=== PATIENT | female | born 2000 | race African-American/Black ===

== ENCOUNTER 2022-03-22 06:22 | Emergency (ER) | payer OTHER, SELFPAY ==
--- NOTE | ~2022-03-22 | XR_ITS ---
EXAMINATION: XR foot LT min 3V DATE: 03/22/2022 06:55 INDICATION: Left foot pain post injury TECHNIQUE: Dorsoplantar, two oblique and lateral views of the left foot were obtained. COMPARISON: None. FINDINGS: Bone alignment is normal. No fracture. Joint spaces are normal. There is a 4 x 2 mm intracortical lyt ic lesion measuring 4 x 2 mm which is aligned along the axis of the bone at the medial proximal metad iaphyseal region of the of the third metacarpal with narrow zone of transition and without periosteal reaction. Soft tissues are unremarkable.. IMPRESSION: 1. No acute osseous abnormality. 2. Tiny nonaggressive appearing lytic lesion along the proximal metadiaphysis of the third metatarsal with differential including vascular channel, nonossifying fibroma, fibrous dysplasia or eosinophili c granuloma. Reviewed, dictated and finalized at location A. [facility] IMPRESSION: 1. No acute osseous abnormality. 2. Tiny nonaggressive appearing lytic lesion along the proximal metadiaphysis o f the third metatarsal with differential including vascular channel, nonossifyi ng fibroma, fibrous dysplasia or eosinophilic granuloma.
[2022-03-22 06:26] VITALS: BP 118/55; PULSE 92; RESP 18; TEMP 36.2; O2SAT 98
--- NOTE | 2022-03-22 07:12 | ED.LOWEXIN ---
HPI - Extremity Injury (Lower) General Chief Complaint: Extremity Injury, Lower Stated Complaint: Left foot pain/injury Time Seen by Provider: 03/22/22 07:03 History of Present Illness HPI Narrative: Pt was lowering bed at college and piece of wood fell on her left foot and spring struck her left leg. Pt complains of pain to her left foot worse with ambulation. Pt denies other injury. Related Data Allergies Allergy/AdvReac Type Severity Reaction Status Date / Time No Known Allergies Allergy Verified 03/22/22 06:33 Review of Systems Review of Systems: All systems reviewed & are unremarkable except as noted in HPI and below Exam Const: General: healthy appearing and no acute distress Nutritional Appearance: well nourished Orientation/consciousness: patient oriented x3 Limitations: no limitations Skin: General skin exam: normal color Wounds: no wounds Neuro: General: patient oriented x3, moves all extremities and no focal motor deficits Speech: normal speech Extrem: General: normal to inspection and no clubbing, cyanosis or edema Other: mild tenderness top of left foot minimal swelling/bruising Psych: Mental Status: mental status grossly normal Affect: normal affect Attitude: cooperative Course Vital Signs Vital signs: Vital Signs Temperature 97.2 F L 03/22/22 06:26 Pulse Rate 92 03/22/22 06:26 Respiratory Rate 18 03/22/22 06:26 Blood Pressure 118/55 L 03/22/22 06:26 Pulse Oximetry 98 03/22/22 06:26 Oxygen Delivery Room Air 03/22/22 06:26 Temperature 97.2 F L 03/22/22 06:26 Pulse Rate 65 03/22/22 08:55 Respiratory Rate 18 03/22/22 08:55 Blood Pressure 118/69 03/22/22 08:55 Pulse Oximetry 100 03/22/22 08:55 Oxygen Delivery Room Air 03/22/22 06:26 MDM - Extremity Injury (Lower) MDM Narrative Medical decision making narrative: given mechanism likely fx vs contusion will get x ray ta assess, leg seems fine wo no x ray needed there. Imaging Data My impression: no fx non aggressive lesion 3rd mt seen, no tenderness over this spot agree with radiologist Discharge Plan Discharge Clinical Impression: Contusion of foot, left Patient Disposition: Home, Self-Care Condition: Stable Instructions: Antibiotic Form, Contusion in Adults (ED) Prescriptions: New naproxen [Naprosyn] 500 mg tablet 500 mg PO BID Qty: 20 0RF Follow-up/Referrals: Yoko,OSVALDO Disla [Primary Care Provider] - Stand Alone Forms: Work/School Release IP
[2022-03-22 08:55] VITALS: BP 118/69; PULSE 65; RESP 18; O2SAT 100
== END 2022-03-22 08:57 | disposition home or self-care (01) ==
PROVIDERS: Emergency Provider Emergency Medicine; PCP Physician Assistant
DX: S90.32XA Contusion of left foot, initial encounter (principal); W20.8XXA Other cause of strike by thrown, projected or falling object, initial encounter
CPT/HCPCS: 73630; 99283

== ENCOUNTER 2022-05-30 19:26 | Emergency (ER) | payer OTHER, SELFPAY ==
--- NOTE | ~2022-05-30 | CT_ITS ---
EXAMINATION: CT cervical spine wo con DATE: 05/30/2022 21:26 INDICATION: Fall. Seizure. Posterior neck pain. TECHNIQUE: Computed tomography (CT) of the cervical spine was performed without intravenous contrast. Automated exposure control and iterative reconstruction technique were employed. Exam dose: 165.20 mGy-cm total exam DLP. COMPARISON: None FINDINGS: There is straightening of the cervical spine which may be due to muscle spasm. C1 and C2 are normally aligned and the odontoid process is intact. No fracture or dislocation or lock ed facet or prevertebral soft tissue swelling. Cervical interspaces are well preserved.. IMPRESSION: Straightening of the cervical spine; otherwise negative Reviewed, dictated and finalized at Location [facility]. Reviewed, dictated and finalized at location A.
--- NOTE | ~2022-05-30 | XR_ITS ---
XR chest 2V DATE: 05/30/2022 21:43 INDICATION: Seizure. History of asthma. TECHNIQUE: AP and lateral views COMPARISON: None FINDINGS: Normal heart size. No hilar or mediastinal enlargement. No pulmonary infiltrate or consolid ation, pleural effusion or pulmonary vascular congestion or pneumothorax. Minimal levoscoliosis of th e thoracic spine. Included skeletal structures are otherwise unremarkable. IMPRESSION: No active cardiopulmonary disease Reviewed, dictated and finalized at location A.
--- NOTE | ~2022-05-30 | CT_ITS ---
EXAMINATION: CT brain wo con DATE: 05/30/2022 21:25 INDICATION: Head injury, seizure. Right frontal headache. Dizziness. TECHNIQUE: Computed tomography (CT) of the head was performed without intravenous contrast. The mA wa s adjusted according to patient size. Iterative reconstruction technique was employed. Exam dose: 52 9.67 mGy-cm total exam DLP. COMPARISON: None FINDINGS: Focal right frontal asymmetric diminished attenuation consistent with focal encephalomalaci a. History of cerebrovascular accident. There is a metallic device of the right frontal bone. Recomme nd correlation with clinical and surgical history.. Otherwise no intracranial mass lesion or hemorrhage, midline shift or mass effect is noted. Normal diggs-white matter differentiation. Normal ventricular size. There are several calcifications subjacent to the inner cortex of the skeleton the right mid and uppe r parietal area. No subdural or epidural hematoma. Prominent calcifications along the anterior falx. There are occasional lower right mastoid air cells with effusions. The mastoid air cells and included paranasal sinuses are otherwise unremarkable. No fracture or bone destruction of the cranial vault. IMPRESSION: Focal right frontal encephalomalacia; history of cerebrovascular accident Postoperative change of the right frontal bone No acute intracranial finding is identified Reviewed, dictated and finalized at [facility]. Reviewed, dictated and finalized at location A. IMPRESSION: Focal right frontal encephalomalacia; history of cerebrovascular a ccident Postoperative change of the right frontal bone No acute intracranial finding is identified
[2022-05-30 19:28] VITALS: BP 112/77; PULSE 84; RESP 16; TEMP 37.2; O2SAT 100
[2022-05-30 19:34] VITALS: O2SAT 100
[2022-05-30 20:00] VITALS: O2SAT 99
--- NOTE | 2022-05-30 20:58 | ED.SEIZURE ---
HPI - Seizure General Chief Complaint: Seizure Stated Complaint: SYNCOPAL EPISODE VS SZ Time Seen by Provider: 05/30/22 20:16 History of Present Illness HPI Narrative: This is a 22-year-old female with past medical history of stroke with residual left-sided weakness and numbness, and seizures, who presents to the emergency department after a suspected seizure. The patient states she was at home, when she felt symptoms consistent with her preseizure aura and lost consciousness. She states she is compliant with her medications and was recently started on trazodone for sleep. She denies any recent illnesses. Seizure History: Yes Related Data Allergies Allergy/AdvReac Type Severity Reaction Status Date / Time No Known Allergies Allergy Verified 05/30/22 20:05 Review of Systems Review of Systems: CONSTITUTIONAL: Denies fever, chills, or sweats. CARDIOVASCULAR: Chest wall pain Denies palpitations, or edema. RESPIRATORY: Denies cough or dyspnea. GASTROINTESTINAL: Denies abdominal pain, nausea, vomiting, or diarrhea. GENITOURINARY: Denies dysuria or hematuria. SKIN: Denies rash or itching. MUSCULOSKELETAL: Neck pain Denies back pain, joint pain, or myalgia. NEUROLOGIC: Denies headache, numbness, dizziness, or weakness. PSYCHIATRIC: Denies anxiety or depression. [facility] Past Medical History Medical History (Updated 05/31/22 @ 00:14 by [facility] Daemanshul) Seizure Stroke Social History Social History (Updated 05/30/22 @ 21:07 by Giuseppe Severino MD) Smoking status: Never smoker Alcohol intake: never Substance use: never Exam Narrative: GENERAL: Well-developed, well-nourished, and in no acute distress. HEAD: Normocephalic, atraumatic. EYES: PERRLA and EOMI. ENT: Nares clear, no rhinorrhea or epistaxis. Mucous membranes moist. Oropharynx without tonsillar hypertrophy exudate or other lesions. NECK: Supple. No adenopathy or masses. No carotid bruits or JVD. Mild tenderness to palpation at approximately C4 without step-off or crepitus. Range of motion of the neck intact without pain. CHEST: Clear to auscultation. No respiratory distress. No wheezes rales or rhonchi. Mild tenderness to palpation of the anterior chest wall. HEART: Regular rate and rhythm. No murmur heard. Normal peripheral pulses. ABDOMEN: Soft, nontender, nondistended, normal active bowel sounds. EXTREMITIES: Normal range of motion. No edema. SKIN: Warm, dry, no rash. NEURO: No focal deficits. Alert and oriented x3. Strength 5/5 in all extremities, mild decrease sensation on the left compared to the right in the upper and lower extremities, cranial nerves II through XII intact. No noted ataxia. PSYCH: Normal mood and affect. Course Course Emergency Course: 20:55 - I suspect the patient's seizure may be related to use of trazodone. 21:35 - UA consistent with UTI. Urine drug screening positive for cannabinoids. On my review of the patient's CT head there is no intracranial hemorrhage, mass or obvious fracture. CT C-spine negative for fracture or dislocation on my review. Chest x-ray on my review is not concerning for acute cardiopulmonary process. 22:00 - Radiology interpretations for CT head, CT cervical spine and chest x-ray unremarkable. Discussed findings with the patient including recommendations to stop taking trazodone. Will treat the patient for urinary tract infection with recommendation for primary care follow-up. Discussed return emergent precautions including signs/symptoms of new focal deficit, status epilepticus and respiratory distress. The patient voiced understanding and is comfortable with the plan. All questions answered to her satisfaction Vital Signs Vital signs: Vital Signs Temperature 98.9 F 05/30/22 19:28 Pulse Rate 84 05/30/22 19:28 Respiratory Rate 16 05/30/22 19:28 Blood Pressure 112/77 05/30/22 19:28 Pulse Oximetry 100 05/30/22 19:28 Oxygen Delivery Room Air 05/30/22 19:28 Temperature 9
[2022-05-30 21:11] LABS: Basophils Absolute Auto 0.1 K/mm3 (0.0-0.1); Basophils Percent Auto 0.7 % (0.2-1.2); Eosinophils Absolute Auto 0.2 K/mm3 (0-0.3); Eosinophils Percent Auto 1.6 % (0-4.4); Hematocrit 43.3 % (37.0-47.0); Hemoglobin 14.5 g/dL (12.0-15.0); Immature Granulocyte Absolute 0.04 K/mm3 (0.00-0.031); Immature Granulocyte Percent A 0.4 % (0-0.5); Lymphocytes Absolute Auto 2.51 K/mm3 (0.9-3.2); Lymphocytes Percent Auto 23.2 % (18.3-44.2); Mean Corpuscular HGB Conc 33.5 g/dl (32-36); Mean Corpuscular Hemoglobin 32.4 pg (26-34); Mean Corpuscular Volume 96.9 fl (80-100); Mean Platelet Volume 9.6 fl (7.4-10.4); Monocytes Percent Auto 9.1 % (2.6-8.5); Neutrophils Absolute Auto 7.1 K/mm3 (1.3-6.7); Platelet Count Result 361 k/mm3 (150-375); Red Blood Count 4.47 M/mm3 (4.2-5.4); White Blood Count 10.8 K/mm3 (4.5-10.0)
[2022-05-30 21:21] LABS: Appearance Urine Turbid (Clear); Bacteria Urine 4+ /hpf; Bilirubin Urine Negative (Negative); Blood Urine 3+ (Negative); Color Urine Yellow (Yellow); Glucose Urine UA Negative (Negative); Ketones Urine Trace mg/dL (Negative); Leukocyte Esterase Ur 2+ LEU/UL (Negative); Mucus Urine Present /lpf; Need Manual Microscopic Reviewed; Nitrate Urine Negative (Negative); Non Pathogenic Casts 0-2; Protein Urine 1+ mg/dL (Negative); RBC Urine >100 /hpf (0-2); Squamous Epithelial Cell Urine Many /hpf (Few); WBC Urine >100 /hpf
[2022-05-30 21:23] LABS: Add Urine Microscopic? YES; Alanine Aminotransferase 26 U/L (6-35); Albumin Level 5.1 g/dL (3.5-5.1); Alkaline Phosphatase 79 U/L (38-126); Anion Gap 8 mmol/L (8-16); Aspartate Amino Transferase 28 U/L (14-36); Bilirubin,Total 1.1 mg/dL (0.2-1.3); Blood Urea Nitrogen 12 mg/dL (7-17); Calcium 9.2 mg/dL (8.4-10.2); Carbon Dioxide 27 mmol/L (22-30); Chloride 105 mmol/L (98-107); Estimated CRCL calculation 95 ml/min; Estimated Glomerular Filt Rate > 60; Glucose 81 mg/dL (65-110); Magnesium 2.2 mg/dL (1.6-2.3); Potassium 3.7 mmol/L (3.4-5.0); Sodium 140 mmol/L (137-145)
[2022-05-30 21:27] LABS: Amphetamine Screen Urine Negative (Negative); Barbiturate Screen Urine Negative (Negative); Benzodiazepines Screen Urine Negative (Negative); Cannabinoid Screen Urine Positive (Negative); Cocaine Screen Urine Negative (Negative); Methadone Screen Urine Negative (Negative); Opiate Screen Urine Negative (Negative); Phencyclidine Screen Urine Negative (Negative)
[2022-05-30] MEDS: levETIRAcetam 500 MG TABLET PO (21:32)
[2022-05-30] MEDS: CEPHALEXIN 500 MG CAPSULE PO (22:24)
[2022-05-30 22:26] VITALS: BP 118/81; PULSE 92; RESP 18; O2SAT 99
== END 2022-05-30 22:27 | disposition home or self-care (01) ==
PROVIDERS: Emergency Provider Preventive Medicine Aerospace Medicine; PCP Physician Assistant
DX: G40.909 Epilepsy, unspecified, not intractable, without status epilepticus (principal); N39.0 Urinary tract infection, site not specified; I69.354 Hemiplegia and hemiparesis following cerebral infarction affecting left non-dominant side
CPT/HCPCS: 36415; 70450; 71046; 72125; 80053; 80307; 81001; 81025; 83735; 85025; 87086; 87088; 99284; A9270

== ENCOUNTER 2022-06-16 08:32 | Emergency (ER) | payer OTHER, SELFPAY ==
[2022-06-16] VITALS (9 sets, daily range): BP systolic 105–131; BP diastolic 64–93; PULSE 69–96; RESP 10–17; TEMP 36.6; O2SAT 98–100
--- NOTE | ~2022-06-16 | XR_ITS ---
EXAMINATION: XR chest 2V 06/16/2022 09:17 INDICATION: Stroke symptoms. PROCEDURE: 2 view chest COMPARISON: 05/30/2022 FINDINGS: The lungs are clear. The cardiomediastinal silhouette is within normal limits. There are no pleural effusions. There is no pneumothorax suspected. IMPRESSION: 1: NO ACUTE CARDIOPULMONARY DISEASE. Reviewed, dictated and finalized at location B.
--- NOTE | ~2022-06-16 | CT_ITS ---
EXAMINATION: CT brain wo con DATE: 06/16/2022 09:14 INDICATION: Left arm weakness. TECHNIQUE: Computed tomography (CT) of the head was performed without intravenous contrast. The mA wa s adjusted according to patient size. Iterative reconstruction technique was employed. The dose-lengt h product was 529.67 mGy-cm. COMPARISON: Head CT 05/30/2022 FINDINGS: There is an old johana hole in the right frontal bone. There is a tract of chronic encephalom alacia in the right frontal lobe. There is a low-attenuation in the deep white matter of the right fr ontal and parietal lobes. There is no intracranial hemorrhage, acute infarction, or abnormal intracra nial mass lesion. The ventricles are normal in size. The orbits are normal. The paranasal sinuses are clear. There is a right otomastoid effusion. IMPRESSION: 1. Stable white matter disease involving the right frontal lobe and right parietal lobe. The differen tial diagnosis includes subacute or chronic infarct, demyelinating disease such as multiple sclerosis , drug abuse, vasculitis, or reactive astrocytosis (gliosis) secondary to nonspecific etiology. Reviewed, dictated and finalized at location A. IMPRESSION: 1. Stable white matter disease involving the right frontal lobe and right parie mohit lobe. The differential diagnosis includes subacute or chronic infarct, demy elinating disease such as multiple sclerosis, drug abuse, vasculitis, or reacti ve astrocytosis (gliosis) secondary to nonspecific etiology.
--- NOTE | 2022-06-16 08:38 | ECG_ITS ---
Measurements Intervals [place] Rate: 78 P: 40 RI: 129 QRS: 67 QRSD: 86 T: 41 QT: 350 QTc: 399 Interpretive Statements SINUS RHYTHM NO PREVIOUS ECG AVAILABLE FOR COMPARISON Electronically Signed On 06-16-2022 18:06:44 CDT by Rony Harvey M.D.
[2022-06-16 09:08] LABS: Basophils Absolute Auto 0.1 K/mm3 (0.0-0.1); Basophils Percent Auto 0.6 % (0.2-1.2); Eosinophils Absolute Auto 0.3 K/mm3 (0-0.3); Hematocrit 42.8 % (37.0-47.0); Hemoglobin 14.3 g/dL (12.0-15.0); Immature Granulocyte Absolute 0.02 K/mm3 (0.00-0.031); Immature Granulocyte Percent A 0.2 % (0-0.5); Lymphocytes Absolute Auto 1.81 K/mm3 (0.9-3.2); Lymphocytes Percent Auto 21.9 % (18.3-44.2); Mean Corpuscular HGB Conc 33.4 g/dl (32-36); Mean Corpuscular Hemoglobin 32.6 pg (26-34); Mean Corpuscular Volume 97.5 fl (80-100); Mean Platelet Volume 9.8 fl (7.4-10.4); Monocytes Percent Auto 12.2 % (2.6-8.5); Neutrophils Absolute Auto 5.1 K/mm3 (1.3-6.7); Neutrophils Percent Auto 62.1 % (45.5-73.1); Platelet Count Result 267 k/mm3 (150-375); Red Blood Count 4.39 M/mm3 (4.2-5.4); Red Cell Distribution Width 12.1 % (11.5-14.5); White Blood Count 8.3 K/mm3 (4.5-10.0)
[2022-06-16] MEDS: ACETAMINOPHEN 325 MG TABLET 650 MG PO (09:08)
[2022-06-16] MEDS: MECLIZINE HCL 25 MG TABLET PO (09:08)
[2022-06-16 09:18] LABS: Appearance Urine Clear (Clear); Bacteria Urine None Seen /hpf; Bilirubin Urine Negative (Negative); Blood Urine Negative (Negative); Color Urine Yellow (Yellow); Glucose Urine UA Negative (Negative); Ketones Urine Negative (Negative); Leukocyte Esterase Ur 2+ LEU/UL (Negative); Nitrate Urine Negative (Negative); Non Pathogenic Casts 0-2; Protein Urine Negative (Negative); RBC Urine 0-2 /hpf (0-2); Squamous Epithelial Cell Urine None seen /hpf (Few); WBC Urine 51-100 /hpf
[2022-06-16 09:21] LABS: Alanine Aminotransferase 18 U/L (6-35); Albumin Level 4.6 g/dL (3.5-5.1); Alkaline Phosphatase 67 U/L (38-126); Anion Gap 7 mmol/L (8-16); Aspartate Amino Transferase 22 U/L (14-36); Blood Urea Nitrogen 12 mg/dL (7-17); Calcium 8.8 mg/dL (8.4-10.2); Carbon Dioxide 25 mmol/L (22-30); Chloride 106 mmol/L (98-107); Estimated CRCL calculation 95 ml/min; Estimated Glomerular Filt Rate > 60; Glucose 93 mg/dL (65-110); Potassium 3.9 mmol/L (3.4-5.0); Sodium 138 mmol/L (137-145)
[2022-06-16 09:22] LABS: Add Urine Microscopic? YES
[2022-06-16 09:25] LABS: INR 1.1; Prothrombin Time 14.2 Seconds (11.1-14.7)
[2022-06-16 09:26] LABS: Partial Thromboplastin Time 30.8 SECONDS (22.3-36.8)
--- NOTE | 2022-06-16 10:08 | ED.GENADULT ---
HPI - General Adult General Chief complaint: Neuro Symptoms/Deficit Stated complaint: left sided weakness x 2 weeks Time Seen by Provider: 06/16/22 08:41 History of Present Illness HPI narrative: Patient is a complex 22-year-old female with history of seizure disorder, CVA, and multiple sclerosis who presents ER with new left-sided weakness. Began at 2 AM this morning. Feels weak in her left leg and her left arm. She is also reporting dizziness and right ear pain. Dizziness is worse with turning her head and leaning forward. Ear pain ongoing for 24 hours. No fevers or chills or sweats. No change in hearing. Reports some chronic right-sided arm pain that she reports occurs when she does not take her seizure medication. She reports that she has been out of this medication and has not seen her neurologist at [facility]. Additionally she reports that she is not being treated for MS currently because of medication may be causing enlargement and a cyst near her airway and they do not want her airway to close off. She has also not been scheduled to have any cyst surgically removed. Patient additionally reports that she has an IV contrast allergy. The information presented to me was different than the triage note. Related Data Allergies Allergy/AdvReac Type Severity Reaction Status Date / Time iohexol Allergy Unknown Verified 06/16/22 09:02 [From contrast - CT, X-RAY] Review of Systems Review of Systems: All systems reviewed & are unremarkable except as noted in HPI and below Constitutional: Constitutional: Denies chills, Denies fatigue and Denies fever(s) ENT: Reports dizziness, Denies nasal congestion and Denies sore throat Comments: Right ear pain Cardiovascular: Cardiovascular: Denies chest pain, Denies rapid heart rate and Denies radiating jaw, neck or arm pain Respiratory: Respiratory: Denies cough and Denies dyspnea Gastrointestinal: Gastrointestinal: Denies abdominal pain, Denies nausea and Denies vomiting Neurologic: Reports dizziness, Denies syncope, Reports headache(s) (Due to your pain), Reports focal weakness and Denies numbness PMFSH Past Medical History Medical History (Updated 06/16/22 @ 12:47 by Rob Neri MD) Multiple sclerosis Seizure Surgical History Surgical History (Updated 06/16/22 @ 10:10 by Rob Neri MD) No history of previous surgery Social History Social History (Updated 05/30/22 @ 21:07 by Giuseppe Severino MD) Smoking status: Never smoker Alcohol intake: never Substance use: never Exam Narrative: GENERAL: Tearful-appearing, well-nourished, and in no acute distress. HEAD: Normocephalic, atraumatic. EYES: PERRLA and EOMI. ENT: Mucous membranes moist. Bulging and erythematous right tympanic membrane without drainage. Normal left tympanic membrane is opaque and nonbulging. NECK: Supple. CHEST: Clear to auscultation. No respiratory distress. HEART: Regular rate and rhythm. Normal peripheral pulses. ABDOMEN: Soft, nontender, nondistended. EXTREMITIES: Normal range of motion. No edema. SKIN: Warm, dry, no rash. NEURO: Slight left arm weakness but no obvious drift on exam. Same with left lower extremity. Normal [id number] testing and finger-nose testing. No facial asymmetry. Clear speech and no expressive aphasia. Sensation intact. Denies visual disturbance. Alert and oriented x3. PSYCH: Normal mood and affect. Course Course Emergency Course: I discussed the case with [facility] and Dr. Arteaga with neurology and the stroke team does not feel like this represents a CVA and I am in agreement. Spoken with Dr. Lees with neurology. He has looked through the patient's chart and MRIs as well as her neurologist notes. There is no evidence of ischemic stroke in the past since felt patient's neurologic symptoms were present MS. She has not been on her MS therapy. He recommend that patient have her Keppra restarted at 500 mg t
[2022-06-16] MEDS: levETIRAcetam 500 MG TABLET PO (11:44)
== END 2022-06-16 12:55 | disposition home or self-care (01) ==
PROVIDERS: Emergency Provider Emergency Medicine; PCP Physician Assistant
DX: G35 Multiple sclerosis (principal); N39.0 Urinary tract infection, site not specified; H66.91 Otitis media, unspecified, right ear; G40.909 Epilepsy, unspecified, not intractable, without status epilepticus; Z86.73 Personal history of transient ischemic attack (TIA), and cerebral infarction without residual deficits
CPT/HCPCS: 36415; 70450; 71046; 80053; 81001; 85025; 85610; 85730; 87086; 93005; 99284; A9270

== ENCOUNTER 2022-06-19 23:10 | Emergency (ER) | payer OTHER, SELFPAY ==
[2022-06-19 23:14] VITALS: BP 112/75; PULSE 110; RESP 17; TEMP 37.3; O2SAT 100
--- NOTE | 2022-06-19 23:37 | ED.GENADULT ---
HPI - General Adult General Chief complaint: Unspecified Stated complaint: multiple complaints Time Seen by Provider: 06/19/22 23:37 History of Present Illness HPI narrative: Patient 22-year-old female who presents the emergency department with chief complaint of generalized malaise. The patient reports that she has history of MS and is supposed to see neurology at [facility] and has been off of her medications for over a year. Patient states that she has not been feeling well reports she was seen in the ER about 3 days ago for an ear infection and possible seizures and other generalized complaints. The patient was started on oral antibiotics and told to take her Keppra. Related Data Allergies Allergy/AdvReac Type Severity Reaction Status Date / Time iohexol Allergy Unknown Verified 06/19/22 23:14 [From contrast - CT, X-RAY] Review of Systems Review of Systems: A 10 system review of systems was completed on the patient and is negative except for what is stated in the HPI. Nursing and ancillary documentation was reviewed. [facility] Past Medical History Medical History Multiple sclerosis Seizure Surgical History Surgical History No history of previous surgery Social History Social History Smoking status: Never smoker Alcohol intake: never Substance use: never Exam Narrative: GENERAL: Well-appearing, well-nourished, and in no acute distress. HEAD: Normocephalic, atraumatic. EYES: PERRLA and EOMI. ENT: Nares clear, no rhinorrhea or epistaxis. Mucous membranes moist. There is erythema of the right tympanic membrane NECK: Supple. CHEST: Clear to auscultation. No respiratory distress. HEART: Regular rate and rhythm. No murmur heard. Normal peripheral pulses. ABDOMEN: Soft, nontender, nondistended, normal active bowel sounds. EXTREMITIES: Normal range of motion. No edema. SKIN: Warm, dry, no rash. NEURO: No focal deficits. Alert and oriented x3. GCS 15 able to ambulate without difficulty PSYCH: Normal mood and affect. Course Vital Signs Vital signs: Vital Signs Temperature 37.3 C 06/19/22 23:14 Pulse Rate 110 H 06/19/22 23:14 Respiratory Rate 17 06/19/22 23:14 Blood Pressure 112/75 06/19/22 23:14 Pulse Oximetry 100 06/19/22 23:14 Oxygen Delivery Room Air 06/19/22 23:14 Temperature 37.3 C 06/19/22 23:14 Pulse Rate 110 H 06/19/22 23:14 Respiratory Rate 17 06/19/22 23:14 Blood Pressure 112/75 06/19/22 23:14 Pulse Oximetry 100 06/19/22 23:14 Oxygen Delivery Room Air 06/19/22 23:14 Medical Decision Making MDM Narrative Medical decision making narrative: Differential diagnosis includes otitis media, UTI, metabolic abnormality electrolyte abnormality, The patient was ambulatory in the emergency department without difficulty not showing signs of airway compromise or motor compromise Electrolytes are within normal limits CBC was within normal limits. Urinalysis showed improvement with 21-50 white blood cells present versus the previous studies. Augmentin will be added to the patient's regimen and she will be referred to follow-up with her primary care provider and her neurologist Vital Signs Vital Signs: Vital Signs Temperature 37.3 C 06/19/22 23:14 Pulse Rate 110 H 06/19/22 23:14 Respiratory Rate 17 06/19/22 23:14 Blood Pressure 112/75 06/19/22 23:14 Pulse Oximetry 100 06/19/22 23:14 Oxygen Delivery Room Air 06/19/22 23:14 Temperature 37.3 C 06/19/22 23:14 Pulse Rate 110 H 06/19/22 23:14 Respiratory Rate 17 06/19/22 23:14 Blood Pressure 112/75 06/19/22 23:14 Pulse Oximetry 100 06/19/22 23:14 Oxygen Delivery Room Air 06/19/22 23:14 Lab Data 06/20/22 00:14 06/20/22 00:14 Labs: Lab Results
--- NOTE | 2022-06-19 23:38 | PC.NURSE ---
Patient presents to the ED with multiple comlaints related to issues that involve her MS and current accute health issues that have prevented her from being able to take appropriate medications. Patient states she has a cyst in her throat that is also effecting her ear. Reports he doctor wont give her her MS medications until cyst is resolved. Patient also c/o dizziness, headache and vision issues
[2022-06-20 00:46] LABS: Basophils Percent Auto 0.3 % (0.2-1.2); Eosinophils Absolute Auto 0.1 K/mm3 (0-0.3); Eosinophils Percent Auto 1.2 % (0-4.4); Hematocrit 39.5 % (37.0-47.0); Hemoglobin 13.2 g/dL (12.0-15.0); Immature Granulocyte Absolute 0.04 K/mm3 (0.00-0.031); Immature Granulocyte Percent A 0.4 % (0-0.5); Lymphocytes Absolute Auto 1.56 K/mm3 (0.9-3.2); Lymphocytes Percent Auto 16.4 % (18.3-44.2); Mean Corpuscular HGB Conc 33.4 g/dl (32-36); Mean Corpuscular Hemoglobin 32.4 pg (26-34); Mean Corpuscular Volume 96.8 fl (80-100); Monocytes Absolute Auto 0.9 K/mm3 (0.1-0.6); Monocytes Percent Auto 9.9 % (2.6-8.5); Neutrophils Absolute Auto 6.9 K/mm3 (1.3-6.7); Neutrophils Percent Auto 71.8 % (45.5-73.1); Platelet Count Result 334 k/mm3 (150-375); Red Blood Count 4.08 M/mm3 (4.2-5.4); Red Cell Distribution Width 11.9 % (11.5-14.5); White Blood Count 9.5 K/mm3 (4.5-10.0)
[2022-06-20 00:58] LABS: Appearance Urine Clear (Clear); Bacteria Urine None Seen /hpf; Bilirubin Urine Negative (Negative); Blood Urine Negative (Negative); Color Urine Dark Yellow (Yellow); Glucose Urine UA Negative (Negative); Ketones Urine Negative (Negative); Leukocyte Esterase Ur 2+ LEU/UL (Negative); Nitrate Urine Negative (Negative); Non Pathogenic Casts 0-2; Protein Urine Trace mg/dL (Negative); Specific Grav Ur 1.028 (1.001-1.035); Squamous Epithelial Cell Urine Occasional /hpf (Few); WBC Urine 21-50 /hpf
[2022-06-20 01:08] LABS: Alanine Aminotransferase 21 U/L (6-35); Albumin Level 4.5 g/dL (3.5-5.1); Alkaline Phosphatase 68 U/L (38-126); Anion Gap 8 mmol/L (8-16); Aspartate Amino Transferase 28 U/L (14-36); Bilirubin,Total 0.8 mg/dL (0.2-1.3); Blood Urea Nitrogen 11 mg/dL (7-17); Carbon Dioxide 28 mmol/L (22-30); Chloride 102 mmol/L (98-107); Estimated CRCL calculation 109 ml/min; Estimated Glomerular Filt Rate > 60; Glucose 94 mg/dL (65-110); Magnesium 2.1 mg/dL (1.6-2.3); Potassium 3.6 mmol/L (3.4-5.0); Sodium 138 mmol/L (137-145)
[2022-06-20 01:09] LABS: Add Urine Microscopic? YES
== END 2022-06-20 01:43 | disposition home or self-care (01) ==
PROVIDERS: Emergency Provider Emergency Medicine; PCP Physician Assistant
DX: N39.0 Urinary tract infection, site not specified (principal); H66.91 Otitis media, unspecified, right ear
CPT/HCPCS: 36415; 80053; 81001; 83735; 85025; 87086; 99283

== ENCOUNTER 2023-02-11 01:02 | Emergency (ER) | payer OTHER, SELFPAY ==
[2023-02-11] VITALS (17 sets, daily range): BP systolic 87–123; BP diastolic 45–83; PULSE 78–117; RESP 12–17; O2SAT 96–100
[2023-02-11] MEDS: SODIUM CHLORIDE 0.9% IV 1,000 ML 999 ML IV CONT (02:00)
[2023-02-11 02:11] LABS: Basophils Absolute Auto 0.1 K/mm3 (0.0-0.1); Basophils Percent Auto 0.6 % (0.2-1.2); Eosinophils Absolute Auto 0.1 K/mm3 (0-0.3); Eosinophils Percent Auto 1.3 % (0-4.4); Hematocrit 39.7 % (37.0-47.0); Hemoglobin 12.9 g/dL (12.0-15.0); Immature Granulocyte Absolute 0.05 K/mm3 (0.00-0.031); Immature Granulocyte Percent A 0.5 % (0-0.5); Lymphocytes Absolute Auto 3.45 K/mm3 (0.9-3.2); Lymphocytes Percent Auto 37.3 % (18.3-44.2); Mean Corpuscular HGB Conc 32.5 g/dl (32-36); Mean Corpuscular Hemoglobin 31.9 pg (26-34); Mean Platelet Volume 10.3 fl (7.4-10.4); Monocytes Absolute Auto 1.2 K/mm3 (0.1-0.6); Neutrophils Absolute Auto 4.4 K/mm3 (1.3-6.7); Neutrophils Percent Auto 47.3 % (45.5-73.1); Platelet Count Result 326 k/mm3 (150-375); Red Blood Count 4.05 M/mm3 (4.2-5.4); Red Cell Distribution Width 12.5 % (11.5-14.5); White Blood Count 9.2 K/mm3 (4.5-10.0)
[2023-02-11 02:25] LABS: Alanine Aminotransferase 15 U/L (6-35); Albumin Level 4.6 g/dL (3.5-5.1); Alkaline Phosphatase 50 U/L (38-126); Anion Gap 9 mmol/L (8-16); Aspartate Amino Transferase 26 U/L (14-36); Bilirubin,Total 0.7 mg/dL (0.2-1.3); Blood Urea Nitrogen 11 mg/dL (7-17); Calcium 9.5 mg/dL (8.4-10.2); Carbon Dioxide 28 mmol/L (22-30); Chloride 102 mmol/L (98-107); Estimated Glomerular Filt Rate > 60; Ethanol < 10 mg/dL (<10); Glucose 100 mg/dL (65-110); Potassium 3.9 mmol/L (3.4-5.0); Sodium 139 mmol/L (137-145)
--- NOTE | 2023-02-11 03:07 | PC.NURSE ---
This RN wheeled pt to restroom in attempt to obtain urine sample. Pt tried for aprox 10 mins and unable to urinate. Pt back on stretcher and on monitor.
--- NOTE | 2023-02-11 04:20 | ED.GENADULT ---
HPI - General Adult General Chief complaint: Seizure Stated complaint: SEIZURE Time Seen by Provider: 02/11/23 01:05 History of Present Illness HPI narrative: Patient is a 22-year-old female with history of seizures who presents the ER with concern for seizure. Family states patient was shaking in her upper extremities and acting off so they gave her sublingual diazepam 10 mg. They report patient was awake the entire time have been speaking to them. Patient awake alert at this time. She is taking to marijuana edibles prior to the symptoms occurring. Patient is now becoming more intoxicated due to the benzodiazepine was administered. Denies other ingestants. Related Data Allergies Allergy/AdvReac Type Severity Reaction Status Date / Time iohexol Allergy Unknown Verified 02/11/23 04:30 [From contrast - CT, X-RAY] Review of Systems Review of Systems: ROS unobtainable: Yes unobtainable due to mental status ( Intoxicated) PMFSH Past Medical History Medical History Multiple sclerosis Seizure Surgical History Surgical History No history of previous surgery Social History Social History Smoking status: Never smoker Alcohol intake: never Substance use: never Exam Narrative: GENERAL: Well-appearing, well-nourished, and in no acute distress. HEAD: Normocephalic, atraumatic. EYES: PERRL and EOMI. sclerae injected bilaterally. ENT: Mucous membranes moist. No evidence of tongue biting. NECK: Supple. CHEST: Clear to auscultation. No respiratory distress. HEART: Tachycardic and regular. Normal peripheral pulses. ABDOMEN: Soft, nontender, nondistended. EXTREMITIES: Normal range of motion. No edema. SKIN: Warm, dry, no rash. NEURO: Alert and oriented x3. PSYCH: Normal mood and affect. Course Course Emergency Course: Patient awake alert orient x3. Is not suspect the patient has seizure but was likely very intoxicated from her edibles. That was then exacerbated by the Valium she received. Recommend she follow-up with her neurologist. Vital Signs Vital signs: Vital Signs Pulse Rate 117 H 02/11/23 01:00 Respiratory Rate 17 02/11/23 01:00 Blood Pressure 123/83 02/11/23 01:00 Pulse Oximetry 96 02/11/23 01:00 Oxygen Delivery Room Air 02/11/23 01:00 Pulse Rate 80 02/11/23 06:46 Respiratory Rate 13 02/11/23 06:46 Blood Pressure 87/47 L 02/11/23 06:46 Pulse Oximetry 98 02/11/23 06:46 Oxygen Delivery Room Air 02/11/23 01:12 Medical Decision Making Vital Signs Vital Signs: Vital Signs Pulse Rate 117 H 02/11/23 01:00 Respiratory Rate 17 02/11/23 01:00 Blood Pressure 123/83 02/11/23 01:00 Pulse Oximetry 96 02/11/23 01:00 Oxygen Delivery Room Air 02/11/23 01:00 Pulse Rate 80 02/11/23 06:46 Respiratory Rate 13 02/11/23 06:46 Blood Pressure 87/47 L 02/11/23 06:46 Pulse Oximetry 98 02/11/23 06:46 Oxygen Delivery Room Air 02/11/23 01:12 Lab Data 02/11/23 01:59 02/11/23 01:59 Labs: Lab Results 02/11/23 02/11/23 Range/Units 01:59 04:28 WBC 9.2 (4.5-10.0) K/mm3 RBC 4.05 L (4.2-5.4) M/mm3 Hgb 12.9 (12.0-15.0) g/dL Hct 39.7 (37.0-47.0) % MCV 98.0 (80-100) fl MCH 31.9 (26-34) pg MCHC 32.5 (32-36) g/dl RDW 12.5 (11.5-14.5) % Plt Count 326 (150-375) k/mm3 MPV 10.3 (7.4-10.4) fl Immature Gran % (Auto) 0.5 (0-0.5) % Neut % (Auto) 47.3 (45.5-73.1) % Lymph % (Auto) 37.3 (18.3-44.2) % Nobles % (Auto) 13.0 H (2.6-8.5) % Eos % (Auto) 1.3 (0-4.4) % Baso % (Auto) 0.6 (0.2-1.2) % Lymph # (Auto) 3.45 H (0.9-3.2) K/mm3 Nobles # (Auto) 1.2 H (0.1-0.6) K/mm3 Eos # (Auto) 0.1 (0-0.3) K/mm3 Baso # (Auto) 0.1 (0.0-0.1) K/mm3 Abs Immat Gran
[2023-02-11 04:37] LABS: Appearance Urine Clear (Clear); Bilirubin Urine Negative (Negative); Blood Urine Negative (Negative); Color Urine Yellow (Yellow); Glucose Urine UA Negative (Negative); Ketones Urine Negative (Negative); Leukocyte Esterase Ur Negative LEU/UL (Negative); Nitrate Urine Negative (Negative); Protein Urine Negative (Negative); Specific Grav Ur 1.015 (1.001-1.035); Urobilinogen Urine 0.2 mg/dL (<2.0)
[2023-02-11 04:52] LABS: Amphetamine Screen Urine Negative (Negative); Barbiturate Screen Urine Negative (Negative); Benzodiazepines Screen Urine Negative (Negative); Cannabinoid Screen Urine Positive (Negative); Cocaine Screen Urine Negative (Negative); Methadone Screen Urine Negative (Negative); Opiate Screen Urine Negative (Negative); Phencyclidine Screen Urine Negative (Negative)
[2023-02-11 05:30] LABS: Add Urine Microscopic? NO
== END 2023-02-11 07:17 | disposition home or self-care (01) ==
PROVIDERS: Emergency Provider Emergency Medicine; PCP Physician Assistant
DX: R56.9 Unspecified convulsions (principal); F12.929 Cannabis use, unspecified with intoxication, unspecified; G35 Multiple sclerosis
CPT/HCPCS: 36415; 80053; 80307; 81003; 81025; 85025; 96360; 99283; J7030